=== PATIENT | male | born 1960 | race Caucasian/White ===

== ENCOUNTER 2022-12-04 19:29 | Emergency (ER) | payer OTHER, SELFPAY ==
[2022-12-04 19:34] VITALS: BP 139/83; PULSE 87; RESP 17; TEMP 36.4; O2SAT 98
--- NOTE | 2022-12-04 20:12 | ED.GENADULT ---
HPI - General Adult General Chief complaint: Skin/Abscess/Foreign Body Stated complaint: food bolus Time Seen by Provider: 12/04/22 19:59 History of Present Illness HPI narrative: 62-year-old male presenting to the emergency department for evaluation of a suspected food bolus obstruction. Patient states he has had this happen previously. Patient states approximate 2 hours prior to arrival he was eating some chicken and on the first bite he felt that it got stuck. Patient states since then he has been trying to drink water to pass it but has had persistent vomiting. Patient is unable to handle his secretions at this time. Patient states his last obstruction was approximately 5 years ago. Patient did have a dilation approximately 2 years ago. Patient states he does not currently have a GI physician but is scheduled to follow-up with Dr. Arriola Related Data Home Medications Medication Instructions Recorded Confirmed multivitamin (Daily Multi-Vitamin 1 tablet PO DAILY 08/30/21 11/29/22 tablet) omega 1-cse-mom-fish oil 100 cap PO 08/30/21 11/29/22 mg-160 mg-1,000 mg capsule (Fish Oil) triamcinolone acetonide 0.5 % 1 applic topical BID 11/07/22 11/29/22 topical cream Allergies Allergy/AdvReac Type Severity Reaction Status Date / Time No Known Allergies Allergy Mild Verified 12/04/22 19:32 Review of Systems Review of Systems: CONSTITUTIONAL: Denies fever, chills, or sweats. EYES: Denies visual changes, redness, or discharge. ENT: See HPI CARDIOVASCULAR: Denies chest pain, palpitations, or edema. RESPIRATORY: Denies cough or dyspnea. GASTROINTESTINAL: See HPI GENITOURINARY: Denies dysuria or hematuria. SKIN: Denies rash or itching. MUSCULOSKELETAL: Denies back pain, joint pain, or myalgia. NEUROLOGIC: Denies headache, numbness, or weakness. [facility] Past Medical History Medical History (Updated 12/05/22 @ 00:00 by Silas Vitale) Allergies BMI 26.0-26.9,adult Cancer Colon cancer screening DJD (degenerative joint disease) Dysphagia Eczema Encounter for preventive health examination GERD (gastroesophageal reflux disease) High cholesterol Hyperlipidemia On retirement drug therapy Rash Sexual dysfunction Snoring Urine incontinence Vitamin D deficiency Surgical History Surgical History Hx of appendectomy 2015 Hx of prostatectomy 2004 Status post dilation of esophageal narrowing Family History Family History Father Hypertension Heart problem Mother Diabetes mellitus Social History Social History Smoking packs per day: 0.25 Smoking cigarettes per day: 5.0 Years smoked: 20 Smoking pack-years: 5.00 Smoking status: Never smoker Second hand tobacco smoke exposure: No Smoking end date: 10/30/19 Alcohol intake: current Alcohol use details: Social Substance use: never Substance use type: does not use Lack of Transportation: No Lack of Food: Never True Current Housing: I Have Housing Concerned About Future Housing: No Difficulty Paying Gas/Electric Bills: No Difficulty Paying for Meds: No Currently Unemployed: No Education: Bachelor's Degree Difficulty w/ Childcare or Family Care: No Living arrangements: alone Occupation/Education: occupation Gender identity (if verbalized by the patient): Male Exam Narrative: APPEARANCE: Well appearing, no pain, no distress, well-nourished. HEAD: normocephalic, atraumatic. EYES: PERRLA/EOMI, conjunctivae clear. NOSE: Normal no drainage EARS:TMS clear with good light reflex. THROAT: Pharynx clear, no exudate. NECK: Supple. No adenopathy, no masses. RESPIRATORY: Airway patent, respirations nonlabored. Clear to auscultation bilaterally, no rales, rhonchi, wheezing. CARDIOVASCULAR: Regular rate and rhythm without murmurs rubs or gallops. ABDOM
--- NOTE | 2022-12-04 20:15 | PC.NURSE ---
pt c/o food bolus in esophagus since 1800. states he has hx and has needed sx before. pt denies any sob.
[2022-12-04] MEDS: GLUCAGON FOR INJ 1 MG VIAL IM (20:32)
[2022-12-04 21:45] VITALS: BP 140/76; PULSE 56; RESP 16; O2SAT 100
[2022-12-04 22:03] LABS: Basophils Percent Auto 0.3 % (0.2-1.2); Eosinophils Absolute Auto 0.4 K/mm3 (0-0.3); Eosinophils Percent Auto 2.8 % (0-4.4); Hematocrit 36.8 % (42.0-52.0); Hemoglobin 12.5 g/dL (14.0-18.0); Immature Granulocyte Absolute 0.03 K/mm3 (0.00-0.031); Immature Granulocyte Percent A 0.2 % (0-0.5); Lymphocytes Absolute Auto 1.85 K/mm3 (0.9-3.2); Lymphocytes Percent Auto 14.5 % (18.3-44.2); Mean Corpuscular Hemoglobin 30.3 pg (26-34); Mean Corpuscular Volume 89.3 fl (80-100); Mean Platelet Volume 9.1 fl (7.4-10.4); Monocytes Percent Auto 7.7 % (2.6-8.5); Neutrophils Absolute Auto 9.5 K/mm3 (1.3-6.7); Neutrophils Percent Auto 74.5 % (45.5-73.1); Platelet Count Result 283 k/mm3 (150-375); Red Blood Count 4.12 M/mm3 (4.6-6.20); Red Cell Distribution Width 12.9 % (11.5-14.5); White Blood Count 12.7 K/mm3 (4.5-10.0)
[2022-12-04 22:15] LABS: Alanine Aminotransferase 27 U/L (6-50); Albumin Level 4.4 g/dL (3.5-5.1); Alkaline Phosphatase 57 U/L (38-126); Anion Gap 5 mmol/L (8-16); Aspartate Amino Transferase 33 U/L (17-59); Bilirubin,Total 0.7 mg/dL (0.2-1.3); Blood Urea Nitrogen 12 mg/dL (9-20); Carbon Dioxide 27 mmol/L (22-30); Chloride 104 mmol/L (98-107); Estimated CRCL calculation 100 ml/min; Estimated Glomerular Filt Rate > 60; Glucose 140 mg/dL (65-110); Potassium 3.8 mmol/L (3.4-5.0); Sodium 136 mmol/L (137-145)
== END 2022-12-04 22:05 | disposition short-term general hospital (02) ==
PROVIDERS: Emergency Provider Emergency Medicine; PCP Internal Medicine
DX: T18.128A Food in esophagus causing other injury, initial encounter (principal)
CPT/HCPCS: 36415; 80053; 85025; 96372; 99285; J1610

== ENCOUNTER 2022-12-23 02:56 | Day surgery (SDC) | payer OTHER, SELFPAY ==
[2022-12-09 15:00] VITALS: BMI 26.6
--- NOTE | 2022-12-13 12:00 | PC.NURSE ---
Dr. Arriola made aware that patient was in Ed on 12/04/2022 with Food Bolus and transferred to [facility] for procedure to clear food bolus, wishes to proceed with procedure as scheduled on 12/23/22 and does not need report from [facility].
--- NOTE | 2022-12-22 15:15 | PM.HPGS ---
History of Present Illness History of Present Illness Consent: Risks, benefits, and alternatives have been discussed and questions answered. Patient agrees to proceed with procedure. Chief complaint: dysphagia, neoplasm screening Narrative: Jeremy Samuels is a 62 year old male Referred for investigation of dysphagia and also for colon cancer screening. He was recently in the emergency room because of impacted food bolus. He was transferred to [facility] because of lack of GI coverage here at that time. Four years ago he had endoscopy in [place] at which time biopsies were taken to rule out EOE, and these were in fact negative. he has noticed increasing difficulty swallowing and cuts up his meat into small bites Review of Systems Review of Systems: All systems reviewed & are unremarkable except as noted in HPI and below PMFSH Past Medical History Medical History Allergies BMI 26.0-26.9,adult Cancer Colon cancer screening DJD (degenerative joint disease) Dysphagia Eczema Encounter for preventive health examination GERD (gastroesophageal reflux disease) High cholesterol Hyperlipidemia On fdc drug therapy Rash Sexual dysfunction Snoring Urine incontinence Vitamin D deficiency Surgical History Surgical History Hx of appendectomy 2015 Hx of prostatectomy 2004 Status post dilation of esophageal narrowing Family History Family History Father Hypertension Heart problem Mother Diabetes mellitus Social History Social History Smoking packs per day: 0.5 Smoking cigarettes per day: 10.0 Years smoked: 15 Smoking pack-years: 7.50 Smoking status: Former smoker Tobacco type: cigarettes Second hand tobacco smoke exposure: No Smoking end date: 10/30/19 Alcohol intake: current Alcohol use details: Socially Substance use: never Substance use type: does not use Lack of Transportation: No Lack of Food: Never True Current Housing: I Have Housing Concerned About Future Housing: No Difficulty Paying Gas/Electric Bills: No Difficulty Paying for Meds: No Currently Unemployed: No Education: Bachelor's Degree Difficulty w/ Childcare or Family Care: No Living arrangements: alone Occupation/Education: occupation Gender identity (if verbalized by the patient): Male Meds Home Medications and Allergies Home Medications Medication Instructions Recorded Confirmed Type multivitamin (Daily Multi-Vitamin 1 tablet PO DAILY 08/30/21 12/09/22 History tablet) omega 0-rtl-qsu-fish oil 100 1 cap PO DAILY 08/30/21 12/09/22 History mg-160 mg-1,000 mg capsule (Fish Oil) triamcinolone acetonide 0.5 % 1 applic topical BID 11/07/22 12/09/22 History topical cream atorvastatin 20 mg tablet 20 mg PO DAILY #90 tabs 11/25/22 12/09/22 Rx diclofenac sodium 75 mg 75 mg PO BID #180 tabs 11/25/22 12/09/22 Rx tablet,delayed release omeprazole 20 mg capsule,delayed 20 mg PO BID 12/09/22 12/09/22 History release Allergies Allergy/AdvReac Type Severity Reaction Status Date / Time glucagon AdvReac Hives Verified 12/23/22 10:06 Exam Const: General: alert Orientation/consciousness: patient oriented x3 Resp: Auscultation: clear to auscultation bilaterally Cardio: Rhythm: regular rhythm GI: GI Palp: Yes Soft to palpation and No Tenderness to palpation present (GI) Neuro: General: patient oriented x3 Assessment and Plan Assessment and plan (1) Dysphagia: Code(s): R13.10 - Dysphagia, unspecified Status: Acute Assessment and Plan: EGD with possible biopsy or dilatation or cautery. (2) Colon cancer screening: Code(s): Z12.11 - Encounter for screening for malignant neoplasm of colon Status: Acute
[2022-12-23 10:07] VITALS: BP 125/80; PULSE 74; RESP 18; TEMP 36.6; O2SAT 99
[2022-12-23] MEDS: LACTATED RINGERS 1,000 ML 150 ML IV CONT (10:13)
--- NOTE | 2022-12-23 10:48 | WPDANESEPPF ---
Anes - Initial Pre Proc Eval Procedure: Operation Date: 12/23/22 11:00 Proposed Procedures p Esophagogastroduodenoscopy & Screening Colonoscopy - Dinh Arriola MD Date/Time: 12/23/22 10:48 Surgeon: Dinh Arriola MD Pre Op Diagnosis: dysphagia, neoplasm screening Patient Data Age: 62 Gender: M Height: 1.8 m Weight: 83.6 kg Last Vital Signs Temp 98 F 12/23/22 10:07 Pulse 74 12/23/22 10:07 Resp 18 12/23/22 10:07 BP 125/80 12/23/22 10:07 Pulse Ox 99 12/23/22 10:07 O2 Del Method Room Air 12/23/22 10:07 Allergies Allergy/AdvReac Type Severity Reaction Status Date / Time glucagon AdvReac Hives Verified 12/23/22 10:06 Home Medications Medication Instructions Recorded Confirmed Type multivitamin (Daily Multi-Vitamin 1 tablet PO DAILY 08/30/21 12/09/22 History tablet) omega 2-chp-qcq-fish oil 100 1 cap PO DAILY 08/30/21 12/09/22 History mg-160 mg-1,000 mg capsule (Fish Oil) triamcinolone acetonide 0.5 % 1 applic topical BID 11/07/22 12/09/22 History topical cream atorvastatin 20 mg tablet 20 mg PO DAILY #90 tabs 11/25/22 12/09/22 Rx diclofenac sodium 75 mg 75 mg PO BID #180 tabs 11/25/22 12/09/22 Rx tablet,delayed release omeprazole 20 mg capsule,delayed 20 mg PO BID 12/09/22 12/09/22 History release Patient hx anesthesia problems: none Family hx anesthesia problems: none Results Review: All pre-operative results and documents have been reviewed as part of the pre-operative evaluation. [facility] Past Medical History Medical History Allergies BMI 26.0-26.9,adult Cancer Colon cancer screening DJD (degenerative joint disease) Dysphagia Eczema Encounter for preventive health examination GERD (gastroesophageal reflux disease) High cholesterol Hyperlipidemia On fpc drug therapy Rash Sexual dysfunction Snoring Urine incontinence Vitamin D deficiency Surgical History Surgical History Hx of appendectomy 2015 Hx of prostatectomy 2004 Status post dilation of esophageal narrowing Family History Family History Father Hypertension Heart problem Mother Diabetes mellitus Social History Social History Smoking packs per day: 0.5 Smoking cigarettes per day: 10.0 Years smoked: 15 Smoking pack-years: 7.50 Smoking status: Former smoker Tobacco type: cigarettes Second hand tobacco smoke exposure: No Smoking end date: 10/30/19 Alcohol intake: current Alcohol use details: Socially Substance use: never Substance use type: does not use Lack of Transportation: No Lack of Food: Never True Current Housing: I Have Housing Concerned About Future Housing: No Difficulty Paying Gas/Electric Bills: No Difficulty Paying for Meds: No Currently Unemployed: No Education: Bachelor's Degree Difficulty w/ Childcare or Family Care: No Living arrangements: alone Occupation/Education: occupation Gender identity (if verbalized by the patient): Male Anes - Eval Final PreProcedure Day of Procedure 12/23/22 10:48 Patient weight: normal Heart: regular rate and rhythm Lungs: clear to auscultation Airway: Mallampati scale class II Neurological: alert and oriented Last oral intake: >/= 8 hours ASA classification: II Emergent: no Anesthetic plan: proceed Anesthesia type and monitoring: general GIVS and standard monitoring Results Review: All pre-operative results and documents have been reviewed as part of the pre-operative evaluation. Informed Consent: The patient's anesthetic plan and its attendant risks and benefits were discussed with the patient/family/POA. Questions were solicited and answers provided to the satisfaction of the patient/family/POA.
--- NOTE | 2022-12-23 11:16 | SUR.OPER ---
EGD end 1109 COLONOSCOPY START 111
[2022-12-23 11:37] VITALS: BP 113/74; PULSE 64; RESP 18; O2SAT 100
[2022-12-23 11:47] VITALS: BP 124/84; PULSE 64; RESP 16; O2SAT 100
[2022-12-23 11:57] VITALS: BP 132/81; PULSE 72; RESP 28; O2SAT 100
== END 2022-12-23 12:04 | disposition home or self-care (01) ==
PROVIDERS: PCP Internal Medicine; Visit Provider Internal Medicine Gastroenterology
PROC: 0DJ08ZZ Inspection of Upper Intestinal Tract, Via Natural or Artificial Opening Endoscopic (ICD-10-PCS; CPT 43235; principal; 2022-12-23 11:00)
DX: Z12.11 Encounter for screening for malignant neoplasm of colon (principal); K57.30 Diverticulosis of large intestine without perforation or abscess without bleeding; K22.2 Esophageal obstruction; K20.0 Eosinophilic esophagitis; E78.00 Pure hypercholesterolemia, unspecified; L30.9 Dermatitis, unspecified; Z87.891 Personal history of nicotine dependence
CPT/HCPCS: 45378; 43249; 88305; C1726; J2704; J7120